=== PATIENT | female | born 1935 | race Caucasian/White ===

== ENCOUNTER 2017-09-19 20:05 | Observation (INO) | payer OTHER ==
[~2017-09-19 20:05] MED LIST: ACTO35TA PO; DOXE50CA3 PO; LEVO50TA51 PO; LORT5TAB PO; MEVA40TA6 PO
[2017-09-19 20:06] VITALS: BP 158/92; PULSE 85; RESP 16; TEMP 98.9; O2SAT 96
--- NOTE | 2017-09-19 21:54 | RADRPT ---
EXAM DATE/TIME: 09/19/2017 20:36 [facility] COMPARISON: No previous studies available for comparison. INDICATIONS : Chest pain for 2 weeks. MEDICAL HISTORY : None. SURGICAL HISTORY : None. ENCOUNTER: Initial ACUITY: 2 weeks PAIN SCORE: 7/10 LOCATION: Left chest and middle of chest. FINDINGS: PA and lateral views of the chest demonstrate the lungs to be symmetrically aerated without evidence of mass, infiltrate or effusion. Moderate size hiatal hernia with an air-fluid level. The cardiomedia stinal contours are unremarkable. Osseous structures are intact. CONCLUSION: 1. Moderate size hiatal hernia. 2. Lungs are clear Thomas Tan MD on September 19, 2017 at 21:51 Board Certified Radiologist. This report was verified electronically.
[2017-09-19 22:02] LABS: AUTOMATED NEUTROPHIL # 3.8 TH/MM3 (1.8-7.7); BASOPHIL # 0.1 TH/MM3 (0-0.2); BASOPHIL % 0.8 % (0.0-2.0); EOSINOPHIL # 0.1 TH/MM3 (0-0.4); EOSINOPHIL % 2.2 % (0.0-4.0); HEMATOCRIT 42.5 % (35.0-46.0); HEMO FLAGS DIFF FINAL; LYMPH % 28.3 % (9.0-44.0); LYMPHOCYTE # 1.8 TH/MM3 (1.0-4.8); MEAN CELL VOLUME 100.7 FL (80.0-100.0); MEAN CORPUSCULAR HEMOGLOBIN 34.7 PG (27.0-34.0); MEAN CORPUSCULAR HGB CONC 34.4 % (32.0-36.0); MONO % 8.8 % (0.0-8.0); NEUT % 59.9 % (16.0-70.0); PLATELET COUNT 204 TH/MM3 (150-450); RED BLOOD COUNT 4.21 MIL/MM3 (4.00-5.30); RED CELL DISTRIBUTION WIDTH 13.1 % (11.6-17.2); WHITE BLOOD COUNT 6.4 TH/MM3 (4.0-11.0)
[2017-09-19 22:11] LABS: APTT (PATIENT) 24.7 SEC (24.3-30.1); PROTHROMBIN TIME - PATIENT 10.8 SEC (9.8-11.6)
[2017-09-19 22:27] LABS: ANION GAP 8 MEQ/L (5-15); BICARBONATE 23.8 MEQ/L (21.0-32.0); BLOOD UREA NITROGEN 17 MG/DL (7-18); CHLORIDE 108 MEQ/L (98-107); GLOMERULAR FILTRATION RATE 51 ML/MIN (>89); MAGNESIUM 2.1 MG/DL (1.5-2.5); POTASSIUM 4.1 MEQ/L (3.5-5.1); SODIUM (NA) 140 MEQ/L (136-145)
[2017-09-19 22:28] LABS: CREATINE KINASE 126 U/L (26-192)
[2017-09-19 22:35] VITALS: BP 152/102; PULSE 76; RESP 18; O2SAT 96
[2017-09-19 22:40] LABS: CKMB 2.7 NG/ML (0.5-3.6)
--- NOTE | 2017-09-19 23:22 | PD ---
HPI Chief Complaint: Chest Pain Time Seen by Provider: 23:01 Travel History International Travel<30 days: No Contact w/Intl Traveler<30days: No Traveled to known affect area: No History of Present Illness HPI 82-year-old female complains of left-sided chest pain. Patient states that she has intermittent aching pain on the left chest for the past several weeks. Patient states that left-sided chest pain became more frequent and lasted longer today. Patient denies any pain radiation. Patient denies palpitation nausea diaphoresis. Patient denies any coughing congestion fever chills. Patient denies history hypertension, diabetes. Patient has history of hyperlipidemia. Patient is a nonsmoker. Patient denies history of CAD. Patient take aspirin 81 mg daily. Patient states that the chest pain is not associated with exertion. PFSH Past Medical History Arthritis: Yes Blood Disorders: No Anxiety: Yes Depression: No Heart Rhythm Problems: Yes Cancer: No Cardiovascular Problems: No High Cholesterol: Yes Chest Pain: Yes Diabetes: No Endocrine: Yes Gastrointestinal Disorders: Yes Glaucoma: No Genitourinary: No Hepatitis: No Hiatal Hernia: No Hypertension: No Immune Disorder: No Medical other: Yes (GERD) Musculoskeletal: Yes (OSTEOPOROSIS) Psychiatric: No Reproductive: No Respiratory: No Thyroid Disease: Yes Ulcer: Yes Tetanus Vaccination: > 5 Years Influenza Vaccination: Yes Tubal Ligation: Yes Past Surgical History Gynecologic Surgery: Yes (TUBAL LIGATION) Other Surgery: Yes Social History Alcohol Use: Yes (SEVERAL DRINKS DAILY) Tobacco Use: No Substance Use: No Allergies-Medications (Allergen,Severity, Reaction): Coded Allergies: No Known Allergies (Verified Adverse Reaction, Unknown, 09/19/17) Reported Meds & Prescriptions Reported Meds & Active Scripts Active Lortab 5/500 (Acetaminophen/Hydrocodone Bitart) 5 Mg/500 Mg Tab 1 Tab PO Q6HPRN FOR PAIN Reported Actonel (Risedronate) 35 Mg Tab 35 Mg PO WEEKLY Sinequan (Doxepin HCl) 50 Mg Cap 50 Mg PO HS Levoxyl (Levothyroxine Sodium) 50 Mcg Tab 50 Mcg PO DAILY Mevacor (Lovastatin) 40 Mg Tab 40 Mg PO DAILY Review of Systems General / Constitutional: No: Fever Eyes: No: Visual changes HENT: No: Headaches Cardiovascular: Positive: Chest Pain or Discomfort Respiratory: No: Shortness of Breath Gastrointestinal: No: Abdominal Pain Genitourinary: No: Dysuria Musculoskeletal: No: Pain Skin: No Rash Neurologic: No: Weakness Psychiatric: No: Depression Endocrine: No: Polydipsia Hematologic/Lymphatic: No: Easy Bruising Physical Exam Narrative GENERAL: Well-nourished, well-developed patient. SKIN: Focused skin assessment warm/dry. HEAD: Normocephalic. EYES: No scleral icterus. No injection or drainage. NECK: Supple, trachea midline. No JVD or lymphadenopathy. CARDIOVASCULAR: Regular rate and rhythm without murmurs, gallops, or rubs. RESPIRATORY: Breath sounds equal bilaterally. No accessory muscle use. GASTROINTESTINAL: Abdomen soft, non-tender, nondistended. MUSCULOSKELETAL: No cyanosis, or edema. BACK: Nontender without obvious deformity. No CVA tenderness. Neurologic exam normal. Data Data Last Documented VS Vital Signs Date Time Temp Pulse Resp B/P (MAP) Pulse Ox O2 Delivery O2 Flow Rate FiO2 09/19/17 22:35 73 Room Air 09/19/17 22:35 18 152/102 (119) 96 09/19/17 20:06 98.9 Orders Orders Electrocardiogram (09/19/17 20:23) Basic Metabolic Panel (Bmp) (09/19/17 20:23) Ckmb (Isoenzyme) Profile (09/19/17 20:23) Complete Blood Count With Diff (09/19/17 20:23) Magnesium (Mg) (09/19/17 20:23) Prothrombin Time / Inr (Pt) (09/19/17 20:23) Act Partial Throm Time (Ptt) (09/19/17 20:23) Troponin I (09/19/17 20:23) Lipase (09/19/17 20:23) Chest, Pa & Lat (09/19/17 20:23) CKMB (09/19/17 21:17) CKMB% (09/19/17 21:17) Labs Laboratory Tests Test 09/19/17 21:17 White Blood Count 6.4 TH/MM3 Red Blood Count 4.21 MIL/MM3 Hemoglobin 14.6 GM/DL Hematocrit 42.5 % Mean Corpuscular Volume 100.7 FL Mean Corpuscular Hemoglobin 34.7 PG Mean Corpuscular Hemoglobin Concent 34.4 % Red Cell Distribution Width 13.1 % Platelet Count 204 TH/MM3 Mean Platelet Volume 8.9 FL Neutrophils (%) (Auto) 59.9 % Lymphocytes (%) (Auto) 28.3 % Monocytes (%) (Auto) 8.8 % Eosinophils (%) (Auto) 2.2 % Basophils (%) (Auto) 0.8 % Neutrophils # (Auto) 3.8 TH/MM3 Lymphocytes # (Auto) 1.8 TH/MM3 Monocytes # (Auto) 0.6 TH/MM3 Eosinophils # (Auto) 0.1 TH/MM3 Basophils # (Auto) 0.1 TH/MM3 CBC Comment DIFF FINAL Differential Comment Prothrombin Time 10.8 SEC Prothromb Time International Ratio 1.0 RATIO Activated Partial Thromboplast Time 24.7 SEC Blood Urea Nitrogen 17 MG/DL Creatinine 1.03 MG/DL Random Glucose 106 MG/DL Calcium Level 8.8 MG/DL Magnesium Level 2.1 MG/DL Sodium Level 140 MEQ/L Potassium Level 4.1 MEQ/L Chloride Level 108 MEQ/L Carbon Dioxide Level 23.8 MEQ/L Anion Gap 8 MEQ/L Estimat Glomerular Filtration Rate 51 ML/MIN Total Creatine Kinase 126 U/L Creatine Kinase MB 2.7 NG/ML Troponin I LESS THAN 0.02 NG/ML Lipase 245 U/L MDM Medical Decision Making Medical Screen Exam Complete: Yes Emergency Medical Condition: Yes Interpretation(s) 23:18 PM. EKG shows sinus rhythm nonspecific ST-T wave change. Chest x-ray shows no acute consolidation. Cardiac enzymes are normal. Differential Diagnosis Differential diagnosis including musculoskeletal, angina, FL, PE, pneumothorax. Narrative Course 82-year-old female with left sided chest pain. Aspirin 325 mg by mouth given. Patient will be admitted to the chest pain center. Diagnosis Primary Impression: Chest pain Qualified Codes: R07.9 - Chest pain, unspecified Admitting Information Admitting Physician Requests: Observation Chester Bruno MD Sep 19, 2017 23:22
[2017-09-19 23:28] VITALS: BP 152/91; PULSE 70; RESP 18; O2SAT 95
[2017-09-19] MEDS ORDERED: ASPIRIN 325 MG TAB PO ONE (23:30)
[2017-09-19] MEDS ORDERED: ACETAMINOPHEN 500 MG CPLT PO PRN (23:45)
[2017-09-19] MEDS ORDERED: ONDANSETRON HCL 4 MG/2 ML VIAL IV PUSH PRN (23:45)
[2017-09-19] MEDS ORDERED: SODIUM CHLORIDE 0.9% FLUSH 10 ML FLUSH IV FLUSH PRN (23:45)
[2017-09-19 23:55] VITALS: O2SAT 95
[2017-09-20 00:54] VITALS: BP 122/67; PULSE 63; RESP 18; TEMP 97.8; O2SAT 96
[2017-09-20 01:04] LABS: CREATINE KINASE 100 U/L (26-192)
[2017-09-20 04:40] LABS: CREATINE KINASE 99 U/L (26-192)
[2017-09-20 04:48] VITALS: BP 127/69; PULSE 62; RESP 18; TEMP 98.1; O2SAT 95
[2017-09-20] MEDS ORDERED: SODIUM CHLORIDE 0.9% FLUSH 10 ML FLUSH IV FLUSH SCH (09:00)
--- NOTE | 2017-09-20 09:09 | HHI.HP ---
[facility] Primary Care Physician Gustavo Machado M.D. Chief Complaint Chest pain History of Present Illness This is an 82-year-old female that presents to ED with history of hypothyroidism and hyperlipidemia with a complaint of 2 weeks of intermittent dull discomfort and points the left axillary region to indicate where the discomfort is at. Last less than 1 minute. No associated shortness breath, nausea, or diaphoresis. Nothing seems bring on the discomfort. She became concerned when the discomfort became more frequent yesterday. Still lasting less than a minute. Also discomfort radiated a little bit from the left axillary region to the left lateral chest wall. Nothing seemed to bring on a nothing seemed to worsen or improve while was there. Denies prior history of cardiac disease. Cannot recall prior cardiac workup. Denies recent travel. Denies fevers or chills. Review of Systems General: Patient denies fevers, chills recent, and recent travel HEENT: Patient denies headache, sore throat, difficulty swallowing. Cardiovascular: Has the chest discomfort as mentioned above. Denies sensation of heart beating rapidly or irregularly. No syncope. Denies diaphoresis. Respiratory: Denies shortness of breath or inspirational chest discomfort. Denies coughing wheezing or hemoptysis. GI: Patient denies nausea, vomiting, diarrhea, abdominal pain, bloody stools. Musculoskeletal: Patient denies joint pain or edema. Denies calf pain or edema. Neurovascular: Patient denies numbness, tingling, weakness in extremities. Denies headache. Endocrine: Denies polyuria and polydipsia. Hematologic: Denies easy bruising. Skin: Denies rash or itching. Past Family Social History Allergies: Coded Allergies: No Known Allergies (Verified Allergy, Unknown, 09/19/17) Past Medical History Hyperlipidemia and hypothyroidism. Denies hypertension, diabetes, and CAD. Lifetime nonsmoker. Past Surgical History Tubal ligation. Reported Medications Reported Meds & Active Scripts Active Reported Actonel 35 mg (Risedronate) 35 Mg Tab 35 Mg PO WEEKLY Sinequan (Doxepin HCl) 50 Mg Cap 50 Mg PO HS Levoxyl (Levothyroxine Sodium) 50 Mcg Tab 50 Mcg PO DAILY Mevacor (Lovastatin) 40 Mg Tab 40 Mg PO DAILY Active Ordered Medications Current Medications Medications (Trade) Dose Ordered Sig/Ioana Route Start Time Stop Time Status Last Admin (NS Flush) 2 ml UNSCH PRN IV FLUSH 09/19/17 23:45 (NS Flush) 2 ml BID IV FLUSH 09/20/17 09:00 (Tylenol) 500 mg Q4H PRN PO 09/19/17 23:45 (Zofran Inj) 4 mg Q6H PRN IV PUSH 09/19/17 23:45 Family History States that her brother has congestive heart failure but really is not sure of coronary artery disease. He is 5 years younger. Social History Lifetime nonsmoker. Denies alcohol or illicit drugs. Physical Exam Vital Signs Vital Signs Date Time Temp Pulse Resp B/P (MAP) Pulse Ox O2 Delivery O2 Flow Rate FiO2 09/20/17 04:48 98.1 62 18 127/69 (88) 95 09/20/17 00:54 97.8 63 18 122/67 (85) 96 09/20/17 00:17 09/19/17 23:55 95 21 09/19/17 23:28 70 18 152/91 (111) 95 Room Air 09/19/17 22:35 73 Room Air 09/19/17 22:35 76 18 152/102 (119) 96 Room Air 09/19/17 20:06 98.9 85 16 158/92 (114) 96 Room Air Physical Exam GENERAL: This is a well-nourished, well-developed patient, in no apparent distress. Patient speaks in clear complete sentences. Patient is pleasant. HEENT: Head is atraumatic and normocephalic. Neck is supple without lymphadenopathy and trachea is midline. No JVD or carotid bruits. CARDIOVASCULAR: Regular rate and rhythm without murmurs, gallops, or rubs. RESPIRATORY: Clear to auscultation. Breath sounds equal bilaterally. No wheezes , rales, or rhonchi. Chest wall is nontender. No use of accessory muscles. GASTROINTESTINAL: Abdomen is nontender, nondistended. Abdomen soft. No obvious pulsatile mass or bruit. No CVA tenderness. Strong femoral pulses bilaterally. Normal bowel sounds in all quadrants. MUSCULOSKELETAL: Patient is moving upper and lower extremities freely. No calf tenderness or edema, no Homans sign. Strong pulses in upper and lower extremities. NEUROLOGICAL: Patient is alert and oriented. Cranial nerves 2-12 are grossly intact. No focal deficits and speech is clear. SKIN: No rash and turgor is normal. Laboratory Laboratory Tests Test 09/19/17 21:17 09/20/17 00:10 09/20/17 03:15 White Blood Count 6.4 Red Blood Count 4.21 Hemoglobin 14.6 Hematocrit 42.5 Mean Corpuscular Volume 100.7 Mean Corpuscular Hemoglobin 34.7 Mean Corpuscular Hemoglobin Concent 34.4 Red Cell Distribution Width 13.1 Platelet Count 204 Mean Platelet Volume 8.9 Neutrophils (%) (Auto) 59.9 Lymphocytes (%) (Auto) 28.3 Monocytes (%) (Auto) 8.8 Eosinophils (%) (Auto) 2.2 Basophils (%) (Auto) 0.8 Neutrophils # (Auto) 3.8 Lymphocytes # (Auto) 1.8 Monocytes # (Auto) 0.6 Eosinophils # (Auto) 0.1 Basophils # (Auto) 0.1 CBC Comment DIFF FINAL Differential Comment Prothrombin Time 10.8 Prothromb Time International Ratio 1.0 Activated Partial Thromboplast Time 24.7 Blood Urea Nitrogen 17 Creatinine 1.03 Random Glucose 106 Calcium Level 8.8 Magnesium Level 2.1 Sodium Level 140 Potassium Level 4.1 Chloride Level 108 Carbon Dioxide Level 23.8 Anion Gap 8 Estimat Glomerular Filtration Rate 51 Total Creatine Kinase 126 100 99 Creatine Kinase MB 2.7 Troponin I LESS THAN 0.02 LESS THAN 0.02 LESS THAN 0.02 Lipase 245 Result Diagram: 09/19/17211609/19/172116 Imaging Last 48 hours Impressions Chest X-Ray 09/19/172022 Signed Impressions: Service Date/Time: Tuesday, September 19, 2017 20:36 - CONCLUSION: 1. Moderate size hiatal hernia. 2. Lungs are clear Thomas Tan MD Course EKGs have sinus rhythm without significant ST segment depressions or elevations. Caprini VTE Risk Assessment Caprini VTE Risk Assessment: Mod/High Risk (score >= 2) Caprini Risk Assessment Model Point Value = 1 Point Value = 2 Point Value = 3 Point Value = 5 Age 41-60 Minor surgery BMI > 25 kg/m2 Swollen legs Varicose veins or History of unexplained or recurrent spontaneous Oral contraceptives or hormone replacement Sepsis (< 1 month) Serious lung disease, including pneumonia (< 1 month) Abnormal pulmonary function Acute myocardial infarction Congestive heart failure (< 1 month) History of inflammatory bowel disease Medical patient at bed rest Age 61-74 Arthroscopic surgery Major open surgery (> 45 min) Laparoscopic surgery (> 45 min) Malignancy Confined to bed (> 72 hours) Immobilizing plaster cast Central venous access Age >= 75 History of VTE Family history of VTE Factor V Leiden Prothrombin [id number] Lupus anticoagulant Anticardiolipin antibodies Elevated serum homocysteine Heparin-induced thrombocytopenia Other congenital or acquired thrombophilia Stroke (< 1 month) Elective arthroplasty Hip, pelvis, or leg fracture Acute spinal cord injury (< 1 month) Prophylaxis Regimen Total Risk Factor Score Risk Level Prophylaxis Regimen 0-1 Low Early ambulation 2 Moderate Order ONE of the following: *Sequential Compression Device (SCD) *Heparin 5000 units SQ BID 3-4 Higher Order ONE of the following medications: *Heparin 5000 units SQ TID *Enoxaparin/Lovenox 40 mg SQ daily (WT < 150 kg, CrCl > 30 mL/min) *Enoxaparin/Lovenox 30 mg SQ daily (WT < 150 kg, CrCl > 10-29 mL/min) *Enoxaparin/Lovenox 30 mg SQ BID (WT < 150 kg, CrCl > 30 mL/min) AND/OR *Sequential Compression Device (SCD) 5 or more Highest Order ONE of the following medications: *Heparin 5000 units SQ TID (Preferred with Epidurals) *Enoxaparin/Lovenox 40 mg SQ daily (WT < 150 kg, CrCl > 30 mL/min) *Enoxaparin/Lovenox 30 mg SQ daily (WT < 150 kg, CrCl > 10-29 mL/min) *Enoxaparin/Lovenox 30 mg SQ BID (WT < 150 kg, CrCl > 30 mL/min) AND *Sequential Compression Device (SCD) Assessment and Plan Assessment and Plan * Chest pain: Her discomfort appears to be atypical in nature. She has had serial cardiac enzymes and EKGs for ruling out purposes. She has been seen by Dr. Coates cardiology in the chest pain center and will undergo a Lexiscan. She'll be discharged home if her stress test was nonischemic. She should follow-up with PCP and return to ED for interval issues. * Hyperlipidemia: Continue current medication. * Hypothyroidism: Continue current medication. Patient is stable at this time. She is agreeable to this plan. Braden Rae Sep 20, 2017 09:09
[2017-09-20] MEDS ORDERED: ACETAMINOPHEN/HYDROcodone 325 MG/5 MG TAB PO PRN (09:15)
[2017-09-20] MEDS ORDERED: ASPIRIN 325 MG TAB PO SCH (09:15)
[2017-09-20] MEDS ORDERED: LEVOTHYROXINE SODIUM 50 MCG TAB PO SCH (09:15)
[2017-09-20] MEDS ORDERED: PRAVASTATIN SOD 40 MG TAB PO SCH (09:15)
[2017-09-20 09:28] VITALS: BP 148/92; PULSE 60; RESP 16; TEMP 96.7; O2SAT 94
[2017-09-20 10:00] VITALS: O2SAT 94
[2017-09-20] MEDS ORDERED: REGADENOSON INJ 0.4 MG/5 ML SYR ONE (11:34)
[2017-09-20 12:54] VITALS: BP 138/84; PULSE 77; RESP 16; TEMP 96.7; O2SAT 94
--- NOTE | 2017-09-20 12:54 | RADRPT ---
EXAM DATE/TIME: 09/20/2017 11:16 [facility] COMPARISON: No previous studies available for comparison. INDICATIONS : Left sided chest pain. Angina. DOSE: 25.9 mCi Tc99m Myoview at stress. 8.3 mCi Tc99m Myoview at rest. 0.4 mg Lexiscan STRESS SYMPTOMS: None. EJECTION FRACTION: 70% MEDICAL HISTORY : Gastroesophageal reflux disease. SURGICAL HISTORY : Tubal ligation. ENCOUNTER: Initial ACUITY: 2 days PAIN SCALE: 5/10 LOCATION: Left chest TECHNIQUE: The patient underwent pharmacologic stress with infusion of prescribed dose. Continuous ECG tracing was monitored during stress. Gated SPECT imaging was performed after stress and conventional SPECT i maging was performed at rest. The examination was performed on a SPECT/CT scanner, both attenuation and non-corrected datasets were reviewed. FINDINGS: DISTRIBUTION: The maximum perfused segment at stress is in the anterior wall. PERFUSION STUDY: The pattern of perfusion at stress is within normal limits. GATED STUDY: There is intact wall motion and thickening without hypokinetic or dyskinetic segments. CONCLUSION: Normal myocardial perfusion scan without evidence of fixed or reversible perfusion abnormalities. Normal wall motion and ejection fraction. RISK CATEGORY: Low (<1% Annual Mortality Rate) Mauro Hu MD on September 20, 2017 at 12:51 Board Certified Radiologist. This report was verified electronically.
--- NOTE | 2017-09-20 13:17 | HHI.DCPOC ---
Discharge Care Plan Diagnosis: (1) Hyperlipidemia (2) Hypothyroidism (3) Chest pain Goals to Promote Your Health * To prevent worsening of your condition and complications * To maintain your health at the optimal level Directions to Meet Your Goals Take your medications as prescribed Follow your dietary instruction Follow activity as directed Keep your appointments as scheduled Take your immunizations and boosters as scheduled If your symptoms worsen call your PCP, if no PCP go to Urgent Care Center or Emergency Room Smoking is Dangerous to Your Health. Avoid second hand smoke Call the 24-hour hour crisis hotline for domestic abuse at Braden Rae Sep 20, 2017 13:17
--- NOTE | 2017-09-20 14:43 | EKG ---
Date Performed: 09/20/2017 Time Performed: 00:12:13 PTAGE: 82 years EKG: Sinus rhythm WITH SINUS ARRHYTHMIA NORMAL ECG Since PREVIOUS TRACING , no significant change noted PREVIOUS TRACIN09/19/2017 21.13 DOCTOR: Ayana Coates Interpretating Date/Time 09/20/2017 14:41:26
--- NOTE | 2017-09-20 14:44 | EKG ---
Date Performed: 09/20/2017 Time Performed: 03:31:52 PTAGE: 82 years EKG: Sinus rhythm WITH SINUS ARRHYTHMIA POSSIBLE RIGHT VENTRICULAR CONDUCTION DELAY NONSPECIFIC T-WAVE ABNORMALITY BOR DERLINE ECG Since PREVIOUS TRACING , no significant change noted PREVIOUS TRACIN09/20/2017 00.12 DOCTOR: Ayana Coates Interpretating Date/Time 09/20/2017 14:42:51
--- NOTE | 2017-09-20 14:46 | TR ---
Date Performed: 09/20/2017 Time Performed: 11:35:01 DOCTOR: Ayana Coates DRUG LIST: CLINICAL HISTORY: REASON FOR TEST: REASON FOR ENDING: OBSERVATION: CONCLUSION: Lexiscan stress test was performed under standard four minute protocol. Radionuclid e was injected one minute prior to ending the test. No electrocardiographic abormalities were present to suggest ischemia. Nuclear imaging and interpretation are pending. COMMENTS:
--- NOTE | 2017-09-20 17:52 | EKG ---
Date Performed: 09/19/2017 Time Performed: 21:13:05 PTAGE: 82 years EKG: Sinus rhythm POSSIBLE RIGHT VENTRICULAR CONDUCTION DELAY Since previous tracing, no significant change noted [facility] ECG PREVIOUS TRACING : 12/12/2008 08.24 DOCTOR: Ayana Coates Interpretating Date/Time 09/20/2017 17:51:19
[2017-09-20] MEDS ORDERED: DOXEPIN HCL 50 MG CAP PO SCH (21:00)
== END 2017-09-20 15:33 | disposition home or self-care (01) ==
LOC: NEPC 20:05 → NEDA 23:23 → NEPHCDU 09-20 00:18
PROVIDERS: ADMIT Internal Medicine Cardiovascular Disease; ATTEND Internal Medicine Cardiovascular Disease
DX: R07.89 Other chest pain (principal); E03.9 Hypothyroidism, unspecified; E78.5 Hyperlipidemia, unspecified; E78.00 Pure hypercholesterolemia, unspecified; K21.9 Gastro-esophageal reflux disease without esophagitis; M81.0 Age-related osteoporosis without current pathological fracture; R94.31 Abnormal electrocardiogram [ECG] [EKG]; Z79.82 Long term (current) use of aspirin
CPT/HCPCS: 71020; 78452; 80048; 82550; 82552; 83690; 83735; 84484; 85025; 85610; 85730; 93005; 93017; 99285; A9502; G0378; J2785

== ENCOUNTER 2017-11-22 18:46 | Emergency (ER) | payer OTHER ==
[~2017-11-22] VITALS: Ht 170.2 cm; Wt 76.8 kg
[~2017-11-22 18:46] MED LIST changes: -LORT5TAB PO
[2017-11-22 19:08] VITALS: BP 152/81; PULSE 71; RESP 20; TEMP 97.7; O2SAT 96
[2017-11-22] MEDS ORDERED: RISE30 PO (19:49)
[2017-11-22] MEDS ORDERED: LEVO50TA53 PO (19:49)
[2017-11-22] MEDS ORDERED: LOVA40TA PO (19:49)
--- NOTE | 2017-11-22 20:03 | PD ---
HPI Chief Complaint: Fall Time Seen by Provider: 19:50 Travel History International Travel<30 days: No Contact w/Intl Traveler<30days: No Traveled to known affect area: No History of Present Illness HPI 79-year-old female here with left lower leg pain. She tripped and fell prior to arrival. She has pain in her left ankle and left katz. Pain is moderate, aggravated by movement. Denies any other injuries and she has no other complaints. PFSH Past Medical History Hx Anticoagulant Therapy: Yes (ASA) Arthritis: Yes Blood Disorders: No Anxiety: Yes Depression: No Heart Rhythm Problems: Yes Cancer: No Cardiac Catheterization: No Cardiovascular Problems: No High Cholesterol: Yes Chest Pain: Yes Congestive Heart Failure: No Diabetes: No Diminished Hearing: No Endocrine: Yes Gastrointestinal Disorders: Yes Glaucoma: No Genitourinary: No Hepatitis: No Hiatal Hernia: No Hypertension: No Immune Disorder: No Medical other: Yes (GERD) Musculoskeletal: Yes (OSTEOPOROSIS) Psychiatric: No Reproductive: No Respiratory: No Thyroid Disease: Yes Ulcer: Yes ?: Not Tubal Ligation: Yes Past Surgical History Coronary Artery Bypass Graft: No Gynecologic Surgery: Yes (TUBAL LIGATION) Other Surgery: Yes Social History Alcohol Use: Yes (daily) Tobacco Use: No Substance Use: No Allergies-Medications (Allergen,Severity, Reaction): Coded Allergies: No Known Allergies (Verified Allergy, Unknown, 11/22/17) Reported Meds & Prescriptions Reported Meds & Active Scripts Active Walker with Front Wheels (Device) 1 Mis Mis Ea .XX DIRECTED Tylenol-Codeine #3 (Acetaminophen-Codeine) 300-30 mg Tab 1 Tab PO Q4H PRN Reported Levoxyl (Levothyroxine Sodium) 50 Mcg Tab 50 Mcg PO DAILY Actonel (Risedronate) 30 Mg Tab 30 Mg PO DAILY Lovastatin 40 Mg Tab 40 Mg PO DAILY Review of Systems Except as stated in HPI: all other systems reviewed are Neg Physical Exam Narrative GENERAL: Well-developed well-nourished female in no acute distress SKIN: Warm and dry. Soft tissue swelling lateral malleolus left ankle. HEAD: Atraumatic. Normocephalic. EYES: Pupils equal and round. No scleral icterus. No injection or drainage. ENT: No nasal bleeding or discharge. Mucous membranes pink and moist. NECK: Trachea midline. No JVD. CARDIOVASCULAR: Regular rate and rhythm. No murmur appreciated. RESPIRATORY: No accessory muscle use. Clear to auscultation. Breath sounds equal bilaterally. GASTROINTESTINAL: Abdomen soft, non-tender, nondistended. Hepatic and splenic margins not palpable. MUSCULOSKELETAL: Tender to palpation medial lateral left ankle, tender to palpation lateral left katz. Pain with dorsi and plantarflexion left ankle. NEUROLOGICAL: Awake and alert. No obvious cranial nerve deficits. Motor grossly within normal limits. Normal speech. PSYCHIATRIC: Appropriate mood and affect; insight and judgment normal. Data Data Last Documented VS Vital Signs Date Time Temp Pulse Resp B/P (MAP) Pulse Ox O2 Delivery O2 Flow Rate FiO2 11/22/17 19:08 97.7 71 20 152/81 (104) 96 Orders Orders Tibia/Fibula (Ap/Lat) (11/22/17 ) Splint Or Brace Apply/Monitor (11/22/17 20:44) Ed Discharge Order (11/22/17 20:44) [facility] Medical Decision Making Medical Screen Exam Complete: Yes Emergency Medical Condition: Yes Medical Record Reviewed: Yes Differential Diagnosis Sprain, fracture, contusion Narrative Course X-ray imaging reveal a subtle nondisplaced fractures of the proximal distal left fibula. The patient will be discharged in a wheeler splint and given a prescription for a walker. She plans on following up with Dr. Lorenzo. Diagnosis Primary Impression: Left fibular fracture Additional Instructions: Follow-up with your orthopedist next week. Do not remove the splint. Do not drive or drink alcohol when taking Tylenol with Codeine. Walker as needed for ambulation. Return for any emergent medical conditions. Med/Other Pt SpecificInfo: Prescription(s) given, Orthopedic Instructions Scripts Walker with Front Wheels (Walker with Front Wheels) 1 Mis Mis EA .XX DIRECTED, #1 0 Refills Prov: Lj Gray MD 11/22/17 Acetaminophen-Codeine (Tylenol-Codeine #3) 300-30 mg Tab 1 TAB PO Q4H Y for PAIN, #20 TAB 0 Refills Prov: Lj Gray MD 11/22/17 Disposition: 01 DISCHARGE HOME Condition: Stable Maurice Stark Nov 22, 2017 20:03
[2017-11-22] MEDS ORDERED: TYLETAB34 PO (20:45)
[2017-11-22] MEDS ORDERED: WALKER WHEELS/F1 MIS (20:46)
--- NOTE | 2017-11-22 20:53 | RADRPT ---
EXAM DATE/TIME: 11/22/2017 20:30 [facility] COMPARISON: No previous studies available for comparison. INDICATIONS : Left proximal tib/fib pain. Patient fell tonight. MEDICAL HISTORY : None. SURGICAL HISTORY : None. ENCOUNTER: Initial ACUITY: 1 day PAIN SCORE: 7/10 LOCATION: Left proximal lower leg. FINDINGS: There is an acute nondisplaced fracture involving the proximal fibular shaft as well as a subtle acut e fracture involving the distal fibula. Soft tissue swelling is noted involving the lateral malleolus . There is no acute fracture or dislocation of the tibia. Chondrocalcinosis is noted involving the fe moral tibial space. Significant arthritic changes and bony overgrowth is noted involving the patellof emoral joint. Plantar calcaneal spur is noted. Degenerative arthritis is also noted involving the tar sometatarsal joints. CONCLUSION: 1. Acute nondisplaced fractures involving the proximal fibular shaft and distal fibula. 2. Chondrocalcinosis involving the femorotibial joint. 3. Significant arthritic changes and bony overgrowth involving the patellofemoral joint. 4. Plantar calcaneal spurring. 5. Degenerative arthritis involving the tarsometatarsal joints. William Ferrer MD on November 22, 2017 at 20:47 Board Certified Radiologist. This report was verified electronically.
== END 2017-11-22 22:29 | disposition home or self-care (01) ==
LOC: PHEFT 18:46
DX: S82.832A Other fracture of upper and lower end of left fibula, initial encounter for closed fracture (principal); E78.00 Pure hypercholesterolemia, unspecified; F41.9 Anxiety disorder, unspecified; K21.9 Gastro-esophageal reflux disease without esophagitis; M81.0 Age-related osteoporosis without current pathological fracture; W01.0XXA Fall on same level from slipping, tripping and stumbling without subsequent striking against object, initial encounter; Z79.899 Other long term (current) drug therapy
CPT/HCPCS: 29515; 73590

== ENCOUNTER 2018-08-03 12:30 | Inpatient (IN) ==
[2018-08-14] MEDS ORDERED: Vancomycin Inj 1,000 MG in Sodium Chlor 0.9% Inj 250 ML IV.SIG SCH (12:15)
[2018-08-14] MEDS ORDERED: Metoprolol Tartrate 25 MG Tablet PO ONE (12:15)
[2018-08-14] MEDS ORDERED: Chlorhexidine Gluconate 2% 1 Pack (2 Cloths) TOPICAL ONE (12:15)
[2018-08-14] MEDS ORDERED: Chlorhexidine 4% Topical 120 APPLIC/120 ML Bottle TOPICAL SCH (12:15)
[2018-08-14] MEDS ORDERED: Sodium Chlor 0.9% Inj 500 ML IV.CONT ONE (12:15)
[2018-08-14] MEDS ORDERED: Sodium Chlor 0.9% Inj 73.07 ML, Ropivacaine 0.5% PF Inj 24.63 ML, Ketorolac Inj 30 MG, ... P-ARTICULR SCH ×5 (12:30)
[2018-08-14] MEDS ORDERED: Lidocaine PF 1% Inj 5 ML Syringe OTHER ONE (13:52)
[2018-08-14] MEDS ORDERED: Neostigmine Inj 5 MG/5 ML Syringe IV.PUSH ONE (13:52)
[2018-08-14] MEDS ORDERED: Glycopyrrolate Inj 1 MG/5 ML Syringe IV.PUSH ONE (13:52)
[2018-08-14] MEDS: ceFAZolin 2 GM Premix Inj 2 GM/50 ML PIGGYBACK IV.SIG SCH (14:12)
[2018-08-14] MEDS ORDERED: fentaNYL Citrate Inj 100 MCG/2 ML Ampul ONE ×2 (15:05→16:26)
[2018-08-14] MEDS ORDERED: Morphine Inj 4 MG/ML Vial IV.PUSH PRN (16:09)
[2018-08-14] MEDS ORDERED: Bisacodyl 10 MG Supp RECTAL PRN (16:09)
[2018-08-14] MEDS ORDERED: Post-op Orders (for Pharmacy) OTHER STA (16:09)
[2018-08-14] MEDS ORDERED: Zolpidem Tartrate 5 MG Tablet PO PRN (16:10)
--- NOTE | 2018-08-14 16:15 | P.DCO ---
- Physical Therapy Physical Therapy: Gait training, Safety evaluation Knee: Total knee, Protocol: Left, Full weight bearing Canvas Knee Splint: Other (at night time for sleeping ) Right Lower Extremity Weight Bearing: Weight bearing as tolerated Left Lower Extremity Weight Bearing: Weight bearing as tolerated - Nursing RN: 3 days/week x 2 weeks Nursing: Dressing changes (clean incision with alcohol and apply dry, sterile dressing daily ) Additional instructions: Aspirin 81 mg bid x 4 weeks dvt prop Knee high TEDs during day time, may take off at night time x 4 weeks - Certification Need for Home Health services: I have seen patient Leona Herrera on 08/14/18. My clinical findings support the need for the requested home health care services because: Homebound Certification: I certify that my clinical findings support that this patient is homebound because: Homebound Certification: Post-op weakness
[2018-08-14] MEDS ORDERED: *Meperidine Inj 25 MG/ML Vial PERIprocedural Use ONLY ONE (16:28)
[2018-08-14] MEDS ORDERED: Morphine Sulfate Inj 2 MG/ML Vial IV.PUSH PRN (16:45)
--- NOTE | 2018-08-14 16:54 | XR ---
EXAM DATE: 08/14/2018 4:08 PM EDT AGE/SEX: 83 years / Female INDICATIONS: Post op left knee replacement CLINICAL DATA: This is the patient's initial encounter. Patient reports that signs and symptoms have been present for 1 day and indicates a pain score of Nonresponsive. MEDICAL/SURGICAL HISTORY: None. . left knee replaced COMPARISON: [facility], TIBIA/FIBULA LEFT (AP/LAT), 11/22/2017. . FINDINGS: Status post placement of a knee prosthesis. There is good position and alignment of the knee prosthes is. The bony structures are grossly intact. Postsurgical changes are present. CONCLUSION: Good position and alignment on this postoperative study. Electronically signed by: Andrew Hernandez MD 08/14/2018 4:53 PM EDT
[2018-08-14] MEDS ORDERED: *morphine SULFATE 4 MG/ML PERIprocedure ONLY ONE (17:10)
--- NOTE | 2018-08-14 18:07 | MP ---
cc: Javon Lorenzo MD DATE OF OPERATION: 08/14/2018 PREOPERATIVE DIAGNOSES: 1. Left knee severe tricompartment osteoarthritis. 2. Calcific atherosclerotic cardiovascular disease. POSTOPERATIVE DIAGNOSES: 1. Left knee severe tricompartment osteoarthritis. 2. Calcific atherosclerotic cardiovascular disease. PROCEDURE: Left total knee arthroplasty - cemented Bi[employer]-Vanguard. SURGEON: Javon Lorenzo MD FURNACE PUNCHER: NICHO. TOURNIQUET TIME: 17 minutes at 300 mmHg. ANESTHESIA: General anesthesia. Adductor canal block. Intraarticular local anesthesia. DRAIN: Two. COMPLICATIONS: None. SPECIMEN: None. PROCEDURE: My insurance claims assistant Heydi Steen PA-C was present for the entire surgical case. She was medically necessary for the entire case because of the complexity of the case and to facilitate the performance of the procedure. The QUARANTINE OFFICER at the back table did not have the skill set to manipulate the instruments, for example, multiple different types of soft tissue retractors, trial implants, and permanent implants including cement. The patient was brought to the operating room, had satisfactory anesthesia by the department of anesthesia. The left lower extremity was prepped and draped in the usual sterile manner. The extremity was exsanguinated, initially with elevation, tourniquet inflated to 250 mmHg. The tourniquet had to be deflated within 1 minute because of venous hypertension. The leg was then exsanguinated by Paul wrap. Tourniquet was inflated to 300 mmHg. Tourniquet again had to be deflated after 2 additional minutes because of venous hypertension. At this time, I decided to proceed with the case without using the tourniquet. The tourniquet was then used for a short period of time for approximately 14 additional minutes at the time of cementing. Then it was deflated after the cementing. Paramedian capsulotomy was performed. The patient was found to have severe osteoarthritis involving all three compartments of the knee. The remaining portion of the medial and lateral meniscus removed. The prepatellar fat pad was excised. The anterior cruciate ligament was removed. Posterior cruciate ligament was preserved. Using the Biomet-Vanguard total knee arthroplasty system, IM guide was used on the distal femur, 7 degree valgus cut to accept a 67.5 mm femoral component. Extramedullary guide was used for the proximal tibia, and this was used to accept a 71 mm tibial component. A trial reduction with a 12 mm insert was found to be stable and satisfactory and excellent balance in both flexion and extension. The undersurface of the patella was resurfaced using an oscillating saw and then used a 31 mm 3-pronged patellar prosthesis. All trial components were removed. Preparation for cementing was made. The knee was injected with 100 mL of local anesthesia to provide postoperative hemostasis and analgesia. The knee was irrigated with copious amounts of sterile saline. The wound itself was dry. Preparation of cementing was made. Two packages of high viscosity bone cement was used. First, the tibial component was cemented followed by the femoral component and then the patella. All excess bone cement was removed, and the bone was hardened. A 12 x 71 mm left polyethylene plastic was assembled onto the tibial tray and with an appropriate clipping and locking mechanism. The tourniquet was deflated. All bleeders were coagulated. The wound itself was dry. Wound was irrigated with 4000 mL of sterile saline antibiotic solution. It was closed over 2 Hemovac drains. The capsule and extensor mechanism was repaired using #2 Ti-Cron suture. The subcuticular layers with 0 Vicryl and 2-0 Vicryl, skin was approximated with skin deanne. Sterile dressing applied. The patient tolerated the procedure well, was taken to recovery room in stable and satisfactory condition. MD ANANT Corbin/nuria/lucio , 04:06 PM , 04:20 PM CAROL
[2018-08-14] MEDS: Famotidine 20 MG Tablet PO SCH (20:51)
[2018-08-14] MEDS: Senna/Docusate Sodium 8.6/50 MG Tablet PO SCH (20:51)
[2018-08-14] MEDS: Pantoprazole Sodium 20 MG DR Tablet PO SCH (20:52)
[2018-08-15] MEDS ORDERED: Levothyroxine 50 MCG Tablet PO SCH (06:00)
--- NOTE | 2018-08-15 06:47 | P.PNOP ---
Subjective Interval history: POD#1 L TKR No c/o chest pain,no SOB Explained at length operative findings;answered mulitple questions Patient wishes to go home today Physical Exam Vital signs: Vital Signs 08/14/18 12:18 08/14/18 13:02 08/14/18 16:13 Temperature 98 F 98.1 F Pulse Rate 86 67 67 Respiratory Rate 18 12 Blood Pressure 171/90 H 136/71 Pulse Oximetry 18 L 98 97 08/14/18 16:30 08/14/18 16:45 08/14/18 17:00 Temperature Pulse Rate 64 63 63 Respiratory Rate 17 20 12 Blood Pressure 159/74 H 128/66 124/65 Pulse Oximetry 96 99 99 08/14/18 17:15 08/14/18 17:45 08/14/18 18:00 Temperature Pulse Rate 62 71 73 Respiratory Rate 21 21 22 Blood Pressure 111/67 111/56 L 110/59 L Pulse Oximetry 99 99 99 08/14/18 18:15 08/14/18 20:00 08/15/18 00:00 Temperature 97.2 F L 97.5 F L Pulse Rate 65 75 69 Respiratory Rate 12 16 16 Blood Pressure 108/59 L 108/59 L 100/58 L Pulse Oximetry 99 98 98 08/15/18 04:00 Temperature 98.2 F Pulse Rate 75 Respiratory Rate 16 Blood Pressure 106/58 L Pulse Oximetry 97 Intake & Output 08/14/18 08/14/18 08/15/18 06:59 18:59 06:59 Intake Total 1100 / 1100 200 / 200 Output Total 100 / 100 Balance 1000 / 1000 200 / 200 Weight 75.5 kg Intake: IV 300 / 300 200 / 200 Ofirmev Inj 1,000 mg In 100 ml 0 / 0 @ 0 mls/hr IV.SIG .STK-MED ONE Rx#:[id number] Vancomycin Inj 1,000 MG In NS 250 / 250 Inj 250 ML @ 250 mls/hr IV.SIG PUBLIC MESSAGE [employer]ICE SUPERVISOR [facility] Rx#:[id number] Ancef 2 GM Premix Inj 2 gm In 50 / 50 50 ml @ 100 mls/hr IV.SIG PUBLIC MESSAGE SERVICE SUPERVISOR [facility] Rx#:[id number] Ancef Inj 1,000 MG In NS Inj 200 / 200 100 ML @ 200 mls/hr IV.SIG Q6H [facility] Rx#:[id number] Anesthesia Amount 800 / 800 Output: Estimated Blood Loss 100 / 100 Other: Date of Last Bowel Movement 08/13/18 Weight On Admission 75.5 kg Narrative: N/V intact No calf tenderness;negative aftab's Drain removed Results - Labs Laboratory Results - last 24 hr 08/14/18 12:10 Blood Type A Positive Antibody Screen Negative MTS Gel Crossmatch See Detail - Imaging Impressions Knee X-Ray 08/14/18 16:08 CONCLUSION: Good position and alignment on this postoperative study. Assessment and Plan - Problem List (1) Osteoarthritis of left knee Code(s): M17.12 - Unilateral primary osteoarthritis, left knee Status: Acute - Assessment and Plan Ortho stable Discharge home today HHC PT/RN Aspirin 81mg BID,TEDS x 4 weeks for DVT/PE prophylaxsis
[2018-08-15 08:47] VITALS: BP 106/61; PULSE 79; RESP 13; TEMP 97.4; O2SAT 93
[2018-08-15 09:09] LABS: Hematocrit 32.1 % (35.0-46.0); Hemoglobin 11.3 gm/dL (11.6-15.3)
[2018-08-15] MEDS: Senna/Docusate Sodium 8.6/50 MG Tablet PO SCH (09:23)
[2018-08-15] MEDS: Famotidine 20 MG Tablet PO SCH (09:24)
[2018-08-15] MEDS: Pantoprazole Sodium 20 MG DR Tablet PO SCH (09:24)
[2018-08-15] MEDS: ceFAZolin 2 GM Premix Inj 2 GM/50 ML PIGGYBACK IV.SIG SCH (09:26)
== END 2018-08-15 14:45 | disposition home health service (06) ==
LOC: HSDI 08-14 11:22 → N06 08-14 18:39
PROVIDERS: ADMIT Orthopaedic Surgery Orthopaedic Surgery of the Spine; ATTEND Orthopaedic Surgery Orthopaedic Surgery of the Spine